=== PATIENT | male | born 1955 | race Caucasian/White ===

== ENCOUNTER 2024-07-27 19:30 | Emergency (ER) | payer OTHER, MEDICARE, SELFPAY ==
[2024-07-27 19:32] VITALS: BP 152/82
[2024-07-27 19:50] LABS: % Basophils 0.7 % (0-2); % Eosinophils 3.1 % (0-6); % Immature Granulocytes 0.1 % (0-0.5); % Lymphocytes 23.5 % (20.5-51.1); % Monocytes 5.7 % (1.7-9.3); % Neutrophils 66.9 % (42.2-75.2); Absolute Basophils 0.1 10^3/uL (0-0.2); Absolute Eosinophils 0.3 10^3/uL (0-0.7); Absolute Lymphocytes 2.1 10^3/uL (1.2-3.4); Absolute Monocytes 0.5 10^3/uL (0.1-0.6); Hematocrit 42.2 % (39.0-52.0); Hemoglobin 14.3 g/dL (13.0-18.0); Mean Corp Hgb Conc. 33.9 g/dL (33.0-37.0); Mean Corpuscular Hgb 29.9 pg (27.0-31.0); Mean Corpuscular Volume 88.3 fL (80.0-94.0); Mean Platelet Volume 9.6 fL (7.4-10.4); Nucleated Red Blood Cells % 0 % (-); Platelet Count 194 10^3/uL (130-400); Red Blood Cell Count 4.78 10^6/uL (4.70-6.10); Red Cell Dist. Width 12.3 % (11.5-14.5); White Blood Cell Count 8.9 10^3/uL (4.8-10.8)
[2024-07-27 20:07] LABS: ALT (SGPT) 28 U/L (0-50); AST (SGOT) 27 U/L (17-59); Albumin 5.2 g/dl (3.5-5.0); Alkaline Phosphatase 68 U/L (38-126); Blood Urea Nitrogen 19 mg/dl (9-20); Calcium 9.8 mg/dl (8.4-10.2); Carbon Dioxide 28 mmol/L (22-30); Chloride 101 mmol/L (98-107); Glucose 131 mg/dl (70-99); Potassium 4.4 mmol/L (3.5-5.1); Sodium 141 mmol/L (135-145); Total Bilirubin 0.8 mg/dl (0.2-1.3); Total Protein 8.4 g/dl (6.3-8.2); eGFR > 60.00
[2024-07-27 20:47] VITALS: BMI 28.2
--- NOTE | 2024-07-27 20:50 | ED.GENMED ---
History of Present Illness
General
Chief Complaint: Dizziness
Source: patient and family
Exam Limitations: none
Time Seen by Provider: 07/27/24 20:30
History of Present Illness
History of Present Illness:
See MDM
Past History
Past History
ED Past Medical History: Hypercholesterolemia
ED Past Surgical History: Orthopedic
Social History
Tobacco: Non-smoker
Alcohol: None
Phy Exam
Physical Exam
Physical Exam:
See MDM
Course
Orders/Labs/Results
Orders:
Orders
07/27/24 19:33
ECG [Electrocardiogram (*1)] Urgent
Reason for Study: Vertigo / Dizzy
EKG- Treatment ONCE
07/27/24 19:44
CMP [Comprehensive Metabolic Panel] Urgent
Complete Blood Count/With Diff Urgent
07/27/24 20:58
Troponin I Urgent
Abnormal Lab Results
07/27/24
19:44
Glucose 131 H mg/dl
(70-99)
Total Protein 8.4 H g/dl
(6.3-8.2)
Albumin 5.2 H g/dl
(3.5-5.0)
07/27/24 19:44
07/27/24 19:44
Vital Signs
Initial and Last Documented VS:
Initial Vital Signs
Temp Pulse Resp BP Pulse Ox
98 F 62 24 152/82 97
07/27/24 19:32 07/27/24 19:32 07/27/24 19:32 07/27/24 19:32 07/27/24 19:32
Last Documented Vital Signs
Temp Pulse Resp BP Pulse Ox
98 F 62 24 152/82 97
07/27/24 19:32 07/27/24 19:32 07/27/24 19:32 07/27/24 19:32 07/27/24 19:32
MDM/Problems Addressed
Differential Diagnosis Includes:
HPI and MDM Narrative:
69-year-old male presenting for evaluation of dizziness. This has been ongoing for the past few days. He initially states it was worse with certain head movements. But he denies vertiginous symptoms. He is in process of getting cardiac clearance
for his second hip replacement. He had blood work and an EKG recently done. He was told that his heart rate was low but states he was unchanged from prior EKG before his other surgery. Due to the worsening dizziness, he went to urgent care.
Urgent care told him this could be related to symptomatic bradycardia. Patient states his heart rate was in the 50s. On arrival, his heart rate is in the 50s but in a normal sinus rhythm. He is not on any beta-blockers. He currently is
symptom-free. Blood work performed from triage without clinical significance. Will add troponin but doubt ACS given no chest pain or shortness of breath. Patient denies any exertional symptoms
Patient did have recent viral syndrome. We discussed this could possibly be related to his dizziness
Physical exam
General: Well appearing and non-toxic
HEENT: protecting airway. TMs clear
Neck: supple
CV: No evidence of cyanosis. Regular rate and rhythm
Resp: No accessory muscle use
Abd: Non-distended
Extremities: No deformities. No leg edema
Neuro: alert. Normal finger-nose bilaterally
Psych: Normal affect
Skin: Intact
Problems Addressed including Acute and Chronic Conditions affecting care:
1. Dizziness
Acuity: acute
Prognosis: stable
Details: Symptoms have resolved. Discussed likely vertigo versus related to viral syndrome
2. Bradycardia
Acuity: acute
Prognosis: stable
Details: Likely chronic. He is not on beta-blockers. Discussed follow-up with cardiology
Updates
Troponin negative. Will place on cardiac callback tracker. Patient feels comfortable going home
Differential Diagnosis (but not limited to): Vertigo, symptomatic bradycardia, cardiac arrhythmia
Testing considered: CT head but he has no symptoms
Drug therapy (if applicable): OTC meds, please see d/c instruction regarding Rx drugs
Amount and/or Complexity of Data Reviewed
Clinical info obtained from: Patient
External data reviewed: N/A
Labs I independently reviewed (but not limited to): Electrolytes within normal
Radiology: N/A
Pulse Ox: not hypoxic
EKG independently reviewed: Sinus rhythm, normal axis, no STEMI
Processing Specialist: N/A
Critical Care: N/A
Risk of Complication:
Social Determinants of health: Good social support
Discussed with other providers: N/A
Escalation of Care includes Admit/Obs: After being observed in the Emergency Department, pt stable for discharge.
Occasional wrong word or 'sound a like' substitutions may have occurred due to the inherent limitations of voice recognition software. Read the chart carefully and recognize, using context, where substitutions have occurred.
*Critical Care Note
Total Time (30-74mins, 75-104mins- exclusive of procedures): Not Applicable
ED Attending Note
-
Portions of this chart may have been created with voice recognition software.� Occasional wrong word or��sound alike� substitutions may have occurred due to the inherent limitations of voice recognition software.
Discharge Plan
Departure
Patient Disposition: Home (Routine Discharge)
Date of Disposition: 07/27/24
Time of Disposition: 21:59
Patient with high blood pressure during this ER visit?: Yes
Discharge Problem:
Dizziness, Bradycardia
Instructions: Chest Pain CBC Follow Up, Dizziness, BLOOD PRESSURE
Referrals:
Augustine Oconnell MD [Active] -
Activity Restrictions/Additional Instructions:
Please return for any worsening symptoms.
You may return at any time if you have further concerns.
Please follow up with your doctor at the first available appointment, preferably this week.
You were placed on the cardiac callback tracker. Someone from their office should call you in the next few days. If you do not hear from them in the next few days, please give them a call.
Thank you for choosing [facility].
Interventions
Interventions:
*Risk Screen - Suicide Last Done: 07/27/24 19:32
*General Assessment Last Done: 07/27/24 20:47
*Neglect/Abuse Screening Last Done: 07/27/24 19:32
ED- Fall Risk Assessment Last Done: 07/27/24 20:47
*ED COVID-19 Vaccine History Last Done: 07/27/24 20:47
ED- Neurological Assessment Last Done: 07/27/24 20:47
ED- Cardiac Assessment Last Done: 07/27/24 20:47
ED Swallowing Screen Last Done: 07/27/24 20:47
Discharge Date and Time
Print Language: CHINESE
[2024-07-27 20:57] VITALS: BP 134/76
[2024-07-27 21:00] VITALS: BP 132/74
[2024-07-27 21:31] LABS: Troponin I < 0.012 ng/ml
[2024-07-27 22:00] VITALS: BP 133/82
== END 2024-07-27 22:31 | disposition home or self-care (01) ==
LOC: EMR 19:30
PROVIDERS: EMERGENCY PHYSICIAN Student in an Organized Health Care Education/Training Program; FAMILY PHYSICIAN Internal Medicine
DX: R42 Dizziness and giddiness (principal); R00.1 Bradycardia, unspecified; E78.00 Pure hypercholesterolemia, unspecified
CPT/HCPCS: 99284; 80053; 84484; 85025; 93005